=== PATIENT | male | born 1965 | race Caucasian/White ===

== ENCOUNTER 2019-06-29 07:50 | Outpatient (CLI) | payer BC, SELFPAY ==
[2019-06-29 09:18] LABS: Anion Gap 8.2 mmol/L (3-11); BUN 20 mg/dL (7-18); CO2 29.8 mmol/L (21.0-32.0); CREATININE 1.17 mg/dL (0.70-1.30); Calculated LDL 160 mg/dL (<100); Chloride 103 mmol/L (98-107); Cholesterol 234 mg/dL (<200); Glucose 99 mg/dL (74-106); HDL Cholesterol 52 mg/dL (40-60); Potassium 4.1 mmol/L (3.5-5.1); Sodium 141 mmol/L (136-145); Triglyceride 112 mg/dL (<150)
== END 2019-06-29 08:10 ==
PROVIDERS: PCP Family Medicine; Visit Provider Family Medicine
DX: Z00.00 Encounter for general adult medical examination without abnormal findings (principal); Z13.220 Encounter for screening for lipoid disorders; Z13.228 Encounter for screening for other metabolic disorders
CPT/HCPCS: 36415; 80048; 80061

== ENCOUNTER 2021-06-01 03:38 | Outpatient (CLI) | payer BC, SELFPAY ==
[2021-06-01 15:09] LABS: Anion Gap 8.9 mmol/L (3-11); BUN 13 mg/dL (7-18); CO2 29.1 mmol/L (21.0-32.0); CREATININE 1.3 mg/dL (0.70-1.30); Calculated LDL 153 mg/dL (<100); Chloride 102 mmol/L (98-107); Cholesterol 238 mg/dL (<200); Estimated GFR 57.31 (mL/min/1.73m2); Glucose 97 mg/dL (74-106); HDL Cholesterol 57 mg/dL (40-60); Sodium 140 mmol/L (136-145); Triglyceride 144 mg/dL (<150)
[2021-06-01 21:59] LABS: PSA, Screening 1.5 ng/mL (0.0-3.5)
[2021-06-04 10:00] LABS: Hepatitis C Ab w Rflx HCV PCR Negative (Negative)
== END 2021-06-01 03:39 | disposition home or self-care (01) ==
LOC: LBO 03:38
PROVIDERS: PCP Family Medicine; Visit Provider Family Medicine
DX: Z00.00 Encounter for general adult medical examination without abnormal findings (principal); Z12.5 Encounter for screening for malignant neoplasm of prostate; Z80.42 Family history of malignant neoplasm of prostate; I10 Essential (primary) hypertension
CPT/HCPCS: 36415; 80048; 80061; 84153; 86803